=== PATIENT | female | born 1960 | race African-American/Black ===

== ENCOUNTER → 2016-12-12 | Outpatient (CLI) | payer MEDICARE ==
[~2016-12-12] MED LIST: CALCIUM500 M1 PO; EFFEXOR XR37.5 M1 PO; INVEGA SUS234 MG/1.5 IM; METOPROLOL SUCC50 MG PO; NORCO 5-325 TA1 EACH PO; POMEGRANATE250 MG PO; VITAMIN B-12500 MCG PO
== END | disposition home or self-care (01) ==
LOC: RAD.S 08:30
DX: Z12.31 Encounter for screening mammogram for malignant neoplasm of breast (principal)

== ENCOUNTER → 2016-12-15 | Outpatient (CLI) | payer MEDICARE, SELFPAY | END | disposition home or self-care (01) | LOC: RAD.S 10:49 | DX: R59.0 Localized enlarged lymph nodes (principal) ==